=== PATIENT | male | born 1995 | race Hispanic/Latino ===

== ENCOUNTER 2021-05-22 14:16 | Emergency (ER) | payer SELFPAY ==
[~2021-05-22] VITALS: Ht 182.9 cm; Wt 136.1 kg
[2021-05-22] MEDS ORDERED: CASIRIVIMAB/IMDEVIMAB 600 MG INJ IV ONE (14:45)
[2021-05-22] MEDS ORDERED: SODIUM CHLORIDE 0.9% 200 ML ONE (14:58)
[2021-05-22] MEDS ORDERED: ACETAMINOPHEN 325 MG TAB ONE (14:59)
[2021-05-22] MEDS ORDERED: ACETAMINOPHEN 325 MG TAB PO ONE (15:30)
[2021-05-22] MEDS ORDERED: CASIRIVIMAB/IMDEVIMAB 600 MG in SODIUM CHLORIDE 0.9% 100 ML IV ONE (16:00)
[2021-05-22 16:48] VITALS: BP 112/78
== END 2021-05-22 16:57 | disposition home or self-care (01) ==
LOC: ER 15:29
DX: U07.1 COVID-19 (principal); R00.0 Tachycardia, unspecified
CPT/HCPCS: 99284; J7050